=== PATIENT | male | born 1985 | race Two or more races ===

== ENCOUNTER 2017-08-09 02:41 | Emergency (ER) | payer MEDICAID, MEDICARE ==
[~2017-08-09] VITALS: Ht 165.1 cm; Wt 104.3 kg
[~2017-08-09 02:41] MED LIST: UNOBMED
[2017-08-09 02:55] VITALS: BP 121/54
--- NOTE | 2017-08-09 03:23 | Emergency Room Report ---
History of Present Illness General Chief Complaint: Alcohol Intoxication Source: Patient, EMS Present Illness HPI This is a 24-year-old male brought in as a [employer]. He was found wandering on the street. The to using methamphetamine. He was very agitated had to be restrained by EMS. History is otherwise unable to be obtained from him. Her EMS, he did admit to use of methamphetamine. No trauma. Allergies: Coded Allergies: UNABLE TO ASSESS (Unverified , 08/09/17) Patient History Past Medical History: see triage record, old chart reviewed, unable to obtain Past Surgical History: unable to obtain Pertinent Family History: unable to obtain Social History: Reports: drug use Immunizations: other Reviewed Nursing Documentation: PMH: Agreed, PSxH: Agreed Nursing Documentation-PMH Past Medical History Deferred: Pt Cognitively Impaired Review of Systems All Other Systems: limited - Secondary to drug use and intoxication Physical Exam Vital Signs Date Time Temp Pulse Resp B/P (MAP) Pulse Ox O2 Delivery O2 Flow Rate FiO2 08/09/17 02:37 97.9 128 16 121/54 96 Room Air vitals with tachycardia Sp02 EP Interpretation: reviewed, normal General Appearance: well appearing, no apparent distress, other - Agitated Head: normocephalic, atraumatic Eyes: bilateral eye PERRL, bilateral eye EOMI ENT: hearing grossly normal, normal pharynx Neck: full range of motion, supple, no meningismus Respiratory: chest non-tender, lungs clear, normal breath sounds Cardiovascular #1: regular rate, rhythm, no murmur Gastrointestinal: normal bowel sounds, non tender, no mass, no organomegaly, no bruit, non-distended Musculoskeletal: back normal, normal range of motion Neurologic: grossly normal Skin: warm/dry Medical Decision Making Diagnostic Impression: Primary Impression: Drug abuse ER Course patient with altered mental status. He is now awake. He admits to using unknown drugs. We'll discharge home. No suicidal thought homicidal thought. Last Vital Signs Date Time Temp Pulse Resp B/P (MAP) Pulse Ox O2 Delivery O2 Flow Rate FiO2 08/09/17 02:55 97.9 134 16 121/54 96 Room Air Status: improved Disposition: HOME, SELF-CARE Condition: Stable Referrals: NOT CHOSEN IPA/MD,REFERRING (PCP) Additional Instructions: Abstain from drugs and alcohol. Followup with your DrGuerda in 7 days. Return if worse. CHARLES WESLEY M.D. Aug 09, 2017 03:23
[2017-08-09 04:40] VITALS: BP 112/52
== END 2017-08-09 04:40 | disposition home or self-care (01) ==
LOC: EDBD 02:41 → EMR 03:15
DX: F15.10 Other stimulant abuse, uncomplicated (principal)
CPT/HCPCS: 36415; 80300; 80329; 99283